=== PATIENT | male | born 1985 | race Caucasian/White ===

== ENCOUNTER 2020-10-15 09:45 | Emergency (ER) | payer OTHER ==
[2020-10-15 10:29] LABS: BASOPHIL 0.8 % (0-2); EOSINOPHIL 2.1 % (0-5); HGB 15.5 g/dl (13.2-18.0); LYMPHOCYTE 18.7 % (15-48); MCH 29.5 pg (25.0-31.0); MCV 89.5 fL (78.0-100.0); MONOCYTE 9.2 % (0-12); MPV 9.9 fL (6.0-9.5); NEUTROPHIL 68.8 % (41-80); NRBC 0; PLT 266 K/uL (150-400); RBC 5.25 M/uL (4.70-6.00); WBC 7.2 K/uL (4.0-10.5)
[2020-10-15 10:31] LABS: BILIRUBIN 1+ mg/dL (NEGATIVE); BLOOD NEGATIVE Ery/uL (NEGATIVE); CLARITY CLEAR (CLEAR); COLOR YELLOW (YELLOW); GLUCOSE (U) NORMAL (NORMAL); LEUKOCYTES NEGATIVE Leu/uL (NEGATIVE); NITRITE NEGATIVE (NEGATIVE); PROTEIN 1+ mg/dL (NEGATIVE)
[2020-10-15 10:40] LABS: MUCOUS MODERATE
[2020-10-15 10:41] LABS: BACTERIA TRACE; URINARY RBC RARE
[2020-10-15 10:45] LABS: ALBUMIN 4.4 g/dL (3.4-5.0); BILIRUBIN - TOTAL 0.7 mg/dL (0.2-1.0); BUN/CREAT RATIO (CALC) 18.5 RATIO; CREATININE 0.92 mg/dL (0.67-1.17); GLOBULIN (CALCULATION) 4.3 g/dL; POTASSIUM 3.8 mmol/L (3.5-5.1); TOTAL PROTEIN 8.7 g/dL (6.4-8.2)
[2020-10-17 12:07] LABS: CHLAMYDIA TRACHOMATIS, NAA Negative (Negative); NEISSERIA GONORRHOEAE, NAA Negative (Negative)
== END 2020-10-15 14:21 | disposition home or self-care (01) ==
LOC: FER 09:45
PROVIDERS: Emergency Medicine
DX: R10.31 Right lower quadrant pain (principal); R10.32 Left lower quadrant pain; G89.29 Other chronic pain; R77.9 Abnormality of plasma protein, unspecified; F17.200 Nicotine dependence, unspecified, uncomplicated
CPT/HCPCS: 36415; 80053; 81001; 82150; 83690; 85025; 87491; 87591; Q9967